=== PATIENT | male | born 1980 | race Caucasian/White ===

== ENCOUNTER 2023-09-10 12:40 | Inpatient (IN) | payer OTHER ==
[2023-09-10 13:08] VITALS: BMI 39.0
[2023-09-10] MEDS ORDERED: MAG HYDROX/AL HYDROX/SIMETH 30 ML UNIT-DOSE CUP PO PRN (14:24)
[2023-09-10] MEDS ORDERED: IBUPROFEN 600 MG TABLET (FP) PO PRN (14:24)
[2023-09-10] MEDS ORDERED: guaiFENesin 600 MG TABLET.ER (FP) PO PRN (14:24)
[2023-09-10] MEDS ORDERED: LOPERAMIDE HCL 2 MG CAPSULE PO PRN (14:24)
[2023-09-10] MEDS ORDERED: BENZOCAINE/MENTHOL (CHLORASEPTIC ) LOZENGE MM PRN (14:24)
[2023-09-10] MEDS ORDERED: NICOTINE POLACRILEX 2 MG LOZENGE BC PRN (14:24)
[2023-09-10] MEDS ORDERED: P-EPHED 60MG/TRIPROLIDI 2.5MG TABLET PO PRN (14:24)
[2023-09-10] MEDS ORDERED: BENZONATATE 200 MG CAPSULE PO PRN (14:24)
[2023-09-10] MEDS ORDERED: DOCUSATE SODIUM 100 MG CAPSULE (FP) PO PRN (14:24)
[2023-09-10] MEDS ORDERED: POLYETHYLENE GLYCOL (HEALTHYLAX) 3350 17 GM PACKET PO PRN (14:24)
[2023-09-10] MEDS ORDERED: MAGNESIUM HYDROX 2400MG/30ML ORAL SUSPENSION 30 ML CUP PO PRN (14:24)
[2023-09-10] MEDS ORDERED: ACETAMINOPHEN 325 MG TABLET (FP) PO PRN (14:24)
[2023-09-10] MEDS: TUBERCULIN PPD 5 TU/0.1ML SYRINGE (IN PATIENT USE ONLY) ID ONE (16:45)
[2023-09-10] MEDS: hydrOXYzine PAMOATE 25 MG CAPSULE (FP) PO PRN (17:43)
[2023-09-10] MEDS: IBUPROFEN 400 MG TABLET (FP) PO PRN (17:43)
[2023-09-10] MEDS ORDERED: TUBERCULIN PPD 5 TU/0.1ML SYRINGE (IN PATIENT USE ONLY) ID ONE (18:25)
[2023-09-10 20:30] LABS: PH,URINE 5.5 (5.0-8.0); URINE APPEARANCE CLEAR; URINE BILIRUBIN NEGATIVE (NEGATIVE); URINE COLOR YELLOW; URINE GLUCOSE (UA) NEGATIVE (NEGATIVE); URINE KETONE NEGATIVE (NEGATIVE); URINE LEUK ESTERASE NEGATIVE (NEGATIVE); URINE NITRITE NEGATIVE (NEGATIVE); URINE PROTEIN NEGATIVE (NEGATIVE)
[2023-09-10] MEDS: MELATONIN 5 MG TABLETS PO SCH (22:07)
[2023-09-10] MEDS: THIAMINE 100 MG TABLET PO SCH (22:07)
[2023-09-11] MEDS: PRENATAL VITAMINS W/ FOLIC ACID TABLET (FP) PO SCH (10:10)
[2023-09-11] MEDS: PANTOPRAZOLE 20 MG TABLET PO SCH (10:10)
[2023-09-11 11:42] LABS: HEMATOCRIT 43.4 % (35.4-49); HEMOGLOBIN 14.3 GM/dL (11.7-16.9); MCH 29.3 pg (25.7-33.7); MEAN CELL VOLUME 88.8 fl (80-96); MEAN PLT VOLUME 7.9 fl (7.5-11.1); PLATELET COUNT 239 10^3/uL (134-434); RBC 4.89 M/mm3 (4.00-5.60); RDW 15.2 % (11.9-15.9); WHITE BLOOD COUNT 6.2 K/mm3 (4.0-10.0)
[2023-09-11 12:00] LABS: CHLORIDE 107 mmol/L (98-107); POTASSIUM 4.7 mmol/L (3.5-5.1); SODIUM 142 mmol/L (136-145)
[2023-09-11 12:01] LABS: ALBUMIN 3.5 g/dl (3.4-5.0); ANION GAP 4 mmol/L (4-13); CO2 31 mmol/L (21-32)
[2023-09-11 12:02] LABS: GLUCOSE,RANDOM 119 mg/dL (74-106)
[2023-09-11 12:04] LABS: CALCIUM 8.6 mg/dL (8.5-10.1); CREATININE 0.8 mg/dL (0.55-1.3); SGOT/AST 24 U/L (15-37); SGPT/ALT 23 U/L (13-61)
[2023-09-11 12:05] LABS: BLOOD UREA NITROGEN 14.5 mg/dL (7-18)
[2023-09-11 12:06] LABS: TOT PROT 6.4 g/dl (6.4-8.2)
[2023-09-11 12:07] LABS: ALK PHOS 80 U/L (45-117)
[2023-09-11 12:10] LABS: BILIRUBIN,TOTAL 0.7 mg/dL (0.2-1)
[2023-09-11 12:25] LABS: SYPHILIS W/ RPR CONF NON-REACTIVE (NONREACTIVE)
[2023-09-11 12:33] LABS: ANISOCYTOSIS 0; MACROCYTOSIS 0
[2023-09-11] MEDS: cloZAPine 25 MG TABLET PO SCH (14:58)
[2023-09-11] MEDS: cloZAPine 25 MG TABLET PO ONE (15:01)
[2023-09-11] MEDS: NICOTINE POLACRILEX 2 MG GUM BUC PRN (16:45)
[2023-09-11] MEDS: traZODone HCL 50 MG TABLET (FP) PO SCH (21:19)
[2023-09-12] MEDS ORDERED: ESCITALOPRAM OXALATE 10 MG TABLET ONE (09:18)
[2023-09-12] MEDS: ESCITALOPRAM OXALATE 20 MG TABLET PO SCH (10:35)
[2023-09-12 11:47] LABS: BASO % 0.5 % (0-2.0); EOS % 4.5 % (0-4.5); HEMATOCRIT 41.9 % (35.4-49); LYMPH % 35.1 % (8-40); MCH 29.1 pg (25.7-33.7); MCHC 33.4 g/dl (32.0-35.9); MEAN CELL VOLUME 87.3 fl (80-96); MEAN PLT VOLUME 7.8 fl (7.5-11.1); MONO % 8.8 % (3.8-10.2); NEUT % 51.1 % (42.8-82.8); PLATELET COUNT 237 10^3/uL (134-434); RDW 15.4 % (11.9-15.9); WHITE BLOOD COUNT 5.7 K/mm3 (4.0-10.0)
[2023-09-12] MEDS: cloZAPine 25 MG TABLET PO SCH (21:13)
[2023-09-13] MEDS ORDERED: ESCITALOPRAM OXALATE 10 MG TABLET ONE (09:17)
[2023-09-13] MEDS: cloZAPine 25 MG TABLET PO SCH (21:20)
[2023-09-14] MEDS ORDERED: ESCITALOPRAM OXALATE 10 MG TABLET ONE (09:18)
[2023-09-15] MEDS ORDERED: ESCITALOPRAM OXALATE 10 MG TABLET ONE (09:06)
[2023-09-15] MEDS: cloZAPine 100 MG TABLET PO SCH (21:13)
[2023-09-17] MEDS ORDERED: ESCITALOPRAM OXALATE 10 MG TABLET ONE (10:04)
[2023-09-17] MEDS: ACAMPROSATE CALCIUM 333 MG TABLET.DR PO SCH (21:17)
[2023-09-17] MEDS: cloZAPine 100 MG, cloZAPine 50 MG PO SCH (21:19)
[2023-09-17] MEDS ORDERED: cloZAPine 25 MG TABLET PO SCH (22:00)
[2023-09-19] MEDS ORDERED: cloZAPine 100 MG TABLET PO SCH
[2023-09-19] MEDS ORDERED: ESCITALOPRAM OXALATE 10 MG TABLET ONE (08:59)
[2023-09-19] MEDS: cloZAPine 100 MG TABLET PO SCH (21:22)
[2023-09-20] MEDS ORDERED: ESCITALOPRAM OXALATE 10 MG TABLET ONE (09:54)
[2023-09-21] MEDS ORDERED: ESCITALOPRAM OXALATE 10 MG TABLET ONE (09:47)
[2023-09-22] MEDS ORDERED: cloZAPine 100 MG TABLET PO SCH
[2023-09-22 07:08] VITALS: TEMP 97.7
[2023-09-22] MEDS ORDERED: ESCITALOPRAM OXALATE 10 MG TABLET ONE (08:28)
[2023-09-22 09:30] VITALS: BP 123/81; PULSE 98; RESP 17
== END 2023-09-22 09:45 | disposition home or self-care (01) | DRG 772 ==
LOC: YASAS 12:40 → Y3NR 15:22 → Y3W 09-11 17:48
PROVIDERS: ADMIT Allergy & Immunology; ATTEND Psychiatry & Neurology Pain Medicine
PROC: HZ42ZZZ Group Counseling for Substance Abuse Treatment, Cognitive-Behavioral (ICD-10-PCS; principal; 2023-09-10)
DX: F10.20 Alcohol dependence, uncomplicated (principal); F12.20 Cannabis dependence, uncomplicated; F17.210 Nicotine dependence, cigarettes, uncomplicated; F25.9 Schizoaffective disorder, unspecified; I10 Essential (primary) hypertension; K21.9 Gastro-esophageal reflux disease without esophagitis
CPT/HCPCS: 36415; 80053; 80305; 80307; 81003; 85025; 85027; 86780; 86803; 87811; 93005; 93010

== ENCOUNTER 2024-01-14 11:14 | Inpatient (IN) | payer OTHER ==
[2024-01-14 11:39] VITALS: BMI 39.9
[2024-01-14] MEDS ORDERED: guaiFENesin 600 MG TABLET.ER (FP) PO PRN (11:51)
[2024-01-14] MEDS ORDERED: POLYETHYLENE GLYCOL (HEALTHYLAX) 3350 17 GM PACKET PO PRN (11:51)
[2024-01-14] MEDS ORDERED: BENZONATATE 200 MG CAPSULE PO PRN (11:51)
[2024-01-14] MEDS ORDERED: BENZOCAINE/MENTHOL (CHLORASEPTIC ) LOZENGE MM PRN (11:51)
[2024-01-14] MEDS ORDERED: NICOTINE POLACRILEX 2 MG GUM BUC PRN (11:51)
[2024-01-14] MEDS ORDERED: IBUPROFEN 400 MG TABLET (FP) PO PRN (11:51)
[2024-01-14] MEDS ORDERED: MAG HYDROX/AL HYDROX/SIMETH 30 ML UNIT-DOSE CUP PO PRN (11:51)
[2024-01-14] MEDS ORDERED: ACETAMINOPHEN 325 MG TABLET (FP) PO PRN (11:51)
[2024-01-14] MEDS ORDERED: NICOTINE POLACRILEX 2 MG LOZENGE BC PRN (11:51)
[2024-01-14] MEDS ORDERED: LOPERAMIDE HCL 2 MG CAPSULE PO PRN (11:51)
[2024-01-14] MEDS ORDERED: MAGNESIUM HYDROX 2400MG/30ML ORAL SUSPENSION 30 ML CUP PO PRN (11:51)
[2024-01-14 18:55] LABS: URINE APPEARANCE CLEAR; URINE BILIRUBIN 1+ (NEGATIVE); URINE COLOR DK YELLOW; URINE GLUCOSE (UA) NEGATIVE (NEGATIVE); URINE KETONE TRACE (NEGATIVE); URINE LEUK ESTERASE NEGATIVE (NEGATIVE); URINE NITRITE NEGATIVE (NEGATIVE); URINE PROTEIN NEGATIVE (NEGATIVE)
[2024-01-14] MEDS: THIAMINE 100 MG TABLET PO SCH (21:22)
[2024-01-14] MEDS: traZODone HCL 50 MG TABLET (FP) PO SCH (21:22)
[2024-01-14] MEDS: SUVOREXANT 10 MG TABLET PO PRN (21:23)
[2024-01-14] MEDS ORDERED: MELATONIN 5 MG TABLETS PO SCH (22:00)
[2024-01-15] MEDS: ESCITALOPRAM OXALATE 20 MG TABLET PO SCH (09:10)
[2024-01-15] MEDS: PANTOPRAZOLE 20 MG TABLET PO SCH (09:10)
[2024-01-15] MEDS: PRENATAL VITAMINS W/ FOLIC ACID TABLET (FP) PO SCH (09:11)
[2024-01-15 15:12] LABS: HEMATOCRIT 45.5 % (35.4-49); HEMOGLOBIN 15.3 GM/dL (11.7-16.9); MCH 32.3 pg (25.7-33.7); MCHC 33.6 g/dl (32.0-35.9); MEAN CELL VOLUME 96.1 fl (80-96); MEAN PLT VOLUME 8.6 fl (7.5-11.1); PLATELET COUNT 214 10^3/uL (134-434); RBC 4.73 M/mm3 (4.00-5.60); RDW 15.9 % (11.9-15.9); WHITE BLOOD COUNT 8.6 K/mm3 (4.0-10.0)
[2024-01-15 15:43] LABS: ANISOCYTOSIS 1+; MACROCYTOSIS 1+
[2024-01-15 16:29] LABS: CALCIUM 8.9 mg/dL (8.5-10.1)
[2024-01-15 16:30] LABS: ALBUMIN 3.8 g/dl (3.4-5.0); BLOOD UREA NITROGEN 12.2 mg/dL (7-18)
[2024-01-15 16:33] LABS: CREATININE 0.9 mg/dL (0.55-1.3)
[2024-01-15 16:34] LABS: BILIRUBIN,TOTAL 0.7 mg/dL (0.2-1)
[2024-01-15 16:35] LABS: TOT PROT 6.9 g/dl (6.4-8.2)
[2024-01-15] MEDS: cloZAPine 100 MG TABLET PO SCH (21:30)
[2024-01-16] MEDS ORDERED: ESCITALOPRAM OXALATE 10 MG TABLET ONE (10:41)
[2024-01-17] MEDS ORDERED: ESCITALOPRAM OXALATE 10 MG TABLET ONE (08:53)
[2024-01-19] MEDS ORDERED: ESCITALOPRAM OXALATE 10 MG TABLET ONE (09:25)
[2024-01-20] MEDS: GABAPENTIN 300 MG CAPSULE PO ONE (21:18)
[2024-01-21] MEDS: GABAPENTIN 300 MG CAPSULE PO SCH (09:38)
[2024-01-21 14:44] LABS: INR 1.01 (0.83-1.09); PROTHROMBIN TIME (PATIENT) 11.6 SEC (9.7-13.0)
[2024-01-21 15:04] LABS: POTASSIUM 4.1 mmol/L (3.5-5.1)
[2024-01-21 15:27] LABS: ALBUMIN 3.8 g/dl (3.4-5.0); BLOOD UREA NITROGEN 10.3 mg/dL (7-18)
[2024-01-21 15:32] LABS: CREATININE 0.9 mg/dL (0.55-1.3)
[2024-01-21 15:33] LABS: BILIRUBIN,TOTAL 0.6 mg/dL (0.2-1); TOT PROT 6.7 g/dl (6.4-8.2)
[2024-01-21 15:43] LABS: CALCIUM 9.5 mg/dL (8.5-10.1)
[2024-01-21 15:45] LABS: MAGNESIUM 2.4 mg/dL (1.8-2.4)
[2024-01-22] MEDS ORDERED: ESCITALOPRAM OXALATE 10 MG TABLET ONE (09:20)
[2024-01-22] MEDS: LACTULOSE 20 GM/30 ML UDC (FOR ORAL USE ONLY) PO SCH (14:34)
[2024-01-22] MEDS: NALTREXONE HCL 50 MG TABLET PO ONE (14:34)
[2024-01-22] MEDS: GABAPENTIN 300 MG CAPSULE PO SCH (14:34)
[2024-01-23] MEDS: CHOLECALCIFEROL (VIT D3) 400 UNIT (10 MCG) TABLET PO SCH (09:40)
[2024-01-23] MEDS: NALTREXONE HCL 50 MG TABLET PO SCH (09:40)
[2024-01-25] MEDS ORDERED: ESCITALOPRAM OXALATE 10 MG TABLET ONE (09:34)
[2024-01-27] MEDS ORDERED: ESCITALOPRAM OXALATE 10 MG TABLET ONE (09:19)
[2024-01-28] MEDS ORDERED: ESCITALOPRAM OXALATE 10 MG TABLET ONE (09:28)
[2024-01-29] MEDS ORDERED: ESCITALOPRAM OXALATE 10 MG TABLET ONE (08:59)
[2024-01-30] MEDS: GABAPENTIN 400 MG CAPSULE PO SCH (05:47)
[2024-02-01] MEDS ORDERED: ESCITALOPRAM OXALATE 10 MG TABLET ONE (08:53)
[2024-02-03] MEDS: IBUPROFEN 600 MG TABLET (FP) PO PRN (17:35)
[2024-02-04 06:09] LABS: BENZODIAZEPINES, UR Negative ng/mL (Cutoff=200); CANNABINOIDS, URINE Negative ng/mL (Cutoff=20); METHADONE, URINE Negative ng/mL (Cutoff=300); OPIATES, UR Negative ng/mL (Cutoff=300); PHENCYCLIDINE, URINE Negative ng/mL (Cutoff=25)
[2024-02-04] MEDS ORDERED: ESCITALOPRAM OXALATE 10 MG TABLET ONE (08:33)
[2024-02-05] MEDS ORDERED: ESCITALOPRAM OXALATE 10 MG TABLET ONE (08:33)
[2024-02-06] MEDS ORDERED: ESCITALOPRAM OXALATE 10 MG TABLET ONE (08:57)
[2024-02-08] MEDS ORDERED: ESCITALOPRAM OXALATE 10 MG TABLET ONE (09:14)
[2024-02-09 06:37] VITALS: TEMP 97.3
[2024-02-09] MEDS ORDERED: ESCITALOPRAM OXALATE 10 MG TABLET ONE (09:06)
[2024-02-10] MEDS ORDERED: NALTREXONE MICROSPHERES (VIVITROL) 380 MG DISP.SYRIN IM ONE (06:00)
[2024-02-10] MEDS: NALTREXONE MICROSPHERES (VIVITROL) 380 MG DISP.SYRIN IM ONE (07:23)
[2024-02-10 09:07] VITALS: BP 130/77; PULSE 100; RESP 17
[2024-02-10] MEDS: NALOXONE (NYS OPIOID OVERDOSE PROGRAM) 4 MG/0.1 ML SPRAY NS SCH (09:37)
== END 2024-02-10 09:49 | disposition home or self-care (01) | DRG 772 ==
LOC: YASAS 11:14 → Y3NR 12:18 → Y3W 01-16 10:17
PROVIDERS: ADMIT Psychiatry & Neurology Pain Medicine; ATTEND Psychiatry & Neurology Pain Medicine
PROC: HZ42ZZZ Group Counseling for Substance Abuse Treatment, Cognitive-Behavioral (ICD-10-PCS; principal; 2024-01-14)
DX: F10.20 Alcohol dependence, uncomplicated (principal); F12.20 Cannabis dependence, uncomplicated; F17.210 Nicotine dependence, cigarettes, uncomplicated; F25.9 Schizoaffective disorder, unspecified; I10 Essential (primary) hypertension; K21.9 Gastro-esophageal reflux disease without esophagitis; E55.9 Vitamin D deficiency, unspecified
CPT/HCPCS: 36415; 80053; 80305; 80307; 81003; 82140; 82306; 83735; 85027; 85610; 86780; 87811; J2315